=== PATIENT | male | born 1955 | race Caucasian/White ===

== ENCOUNTER → 2019-07-30 | Outpatient (CLI) | payer OTHER ==
[2019-07-30 12:32] LABS: HEMATOCRIT 42.6 % (42.0-52.0); HEMOGLOBIN 14.4 g/dl (13.5-18.0); MEAN CELL VOLUME 89 fl (80.0-100.0); MEAN CORPUSCULAR HEMOGLOBIN 30 pg (27.0-31.0); MEAN CORPUSCULAR HGB CONC 34 g/dl (33.0-37.0); MEAN PLATELET VOLUME 9.1 fl (7.4-10.4); PLATELET COUNT 200 K/mm3 (130-400); RED BLOOD COUNT 4.77 M/mm3 (4.20-5.60); REDCELL DISTRIBUTION WIDTH-CV 12.7 % (11.5-14.5)
[2019-07-30 12:35] LABS: PROTHROMBIN TIME 11.7 SECONDS (9.7-12.8)
[2019-07-30 12:38] LABS: PARTIAL THROMBOPLASTIN TIME 32.5 SECONDS (26.0-37.0)
[2019-07-30 12:42] LABS: CALCIUM 9.5 mg/dL (8.4-10.2); CREATININE, serum 1.04 (0.66-1.25); POTASSIUM 4.6 mmol/L (3.4-5.0)
[2019-07-30 12:46] LABS: MUCOUS Present /lpf; PH 5 (5-8); SQUAMOUS EPITHELIAL None Seen /hpf; URINE APPEARANCE Clear; URINE BACTERIA None Seen /hpf; URINE BILIRUBIN Negative (NEGATIVE); URINE BLOOD Negative (NEGATIVE); URINE COLOR Yellow; URINE GLUCOSE Negative (NEGATIVE); URINE KETONE Negative (NEGATIVE); URINE LEUKOCYTE ESTERASE Negative (NEGATIVE); URINE NITRATE Negative (NEGATIVE); URINE PROTEIN(semi-quant) Negative (NEGATIVE); URINE RBC 0-2 /hpf; URINE UROBILINOGEN Negative (NEGATIVE)
[2019-07-30 13:04] LABS: COLLECTION METHOD CLEAN CATCH
== END ==
LOC: COL.CARD 11:18
DX: M54.2 Cervicalgia (principal); H93.11 Tinnitus, right ear; G44.89 Other headache syndrome; M48.02 Spinal stenosis, cervical region; M54.12 Radiculopathy, cervical region

== ENCOUNTER 2019-08-07 08:45 | Outpatient (RCR) | payer OTHER | END 2019-08-07 11:42 | disposition home or self-care (01) | LOC: MKS.ESL.PT 08:45 | DX: S46.011A Strain of muscle(s) and tendon(s) of the rotator cuff of right shoulder, initial encounter (principal); M75.91 Shoulder lesion, unspecified, right shoulder; M54.12 Radiculopathy, cervical region ==

== ENCOUNTER → 2019-11-19 | Outpatient (RCR) | payer OTHER | LOC: MKS.ESL.PT | DX: S46.011D Strain of muscle(s) and tendon(s) of the rotator cuff of right shoulder, subsequent encounter (principal); S19.9XXD Unspecified injury of neck, subsequent encounter; M50.023 Cervical disc disorder at C6-C7 level with myelopathy; M50.022 Cervical disc disorder at C5-C6 level with myelopathy; Z47.89 Encounter for other orthopedic aftercare ==

== ENCOUNTER 2019-12-05 15:30 | Outpatient (RCR) | payer OTHER | END 2020-02-19 | disposition still patient (30) | LOC: MKS.ESL.PT | DX: S46.011D Strain of muscle(s) and tendon(s) of the rotator cuff of right shoulder, subsequent encounter (principal); S19.9XXD Unspecified injury of neck, subsequent encounter; M48.02 Spinal stenosis, cervical region; M50.023 Cervical disc disorder at C6-C7 level with myelopathy; M50.022 Cervical disc disorder at C5-C6 level with myelopathy; G44.89 Other headache syndrome; M77.9 Enthesopathy, unspecified | CPT/HCPCS: G0283-GP ==

== ENCOUNTER 2019-12-05 16:15 | Outpatient (RCR) | payer OTHER | END 2019-12-13 | disposition home or self-care (01) | LOC: MKS.ESL.OT | DX: Z47.89 Encounter for other orthopedic aftercare (principal); S19.9XXD Unspecified injury of neck, subsequent encounter; M50.022 Cervical disc disorder at C5-C6 level with myelopathy | CPT/HCPCS: G0283-GP ==

== ENCOUNTER → 2020-04-14 | Outpatient (RCR) | payer OTHER | END | disposition home or self-care (01) | LOC: MKS.ESL.PT | DX: R53.1 Weakness (principal); Z98.1 Arthrodesis status ==

== ENCOUNTER 2020-05-01 08:15 | Outpatient (RCR) | payer OTHER | END 2020-07-16 | disposition still patient (30) | LOC: MKS.ESL.PT | DX: R53.1 Weakness (principal); Z98.1 Arthrodesis status ==

== ENCOUNTER → 2020-08-22 | Outpatient (CLI) | payer OTHER | LOC: COL.RAD 12:43 | DX: M48.02 Spinal stenosis, cervical region (principal); M50.20 Other cervical disc displacement, unspecified cervical region; Z98.1 Arthrodesis status; G24.3 Spasmodic torticollis; Z98.890 Other specified postprocedural states ==

== ENCOUNTER → 2020-10-21 12:29 | Outpatient (RCR) | payer OTHER | END | disposition home or self-care (01) | LOC: MKS.ESL.PT 07-17 14:45 | DX: M62.81 Muscle weakness (generalized) (principal) ==

== ENCOUNTER 2021-03-20 11:00 | Outpatient (RCR) | payer OTHER | END 2021-04-10 | disposition home or self-care (01) | LOC: MKS.ESL.PT | DX: G24.3 Spasmodic torticollis (principal) ==